=== PATIENT | female | born 1995 | race Caucasian/White ===

== ENCOUNTER 2017-02-09 11:09 | Emergency (ER) | payer BC, OTHER ==
[~2017-02-09] VITALS: Ht 170.2 cm; Wt 67.0 kg
[2017-02-09 11:14] VITALS: BP 122/77; PULSE 123; TEMP 37.2; O2SAT 98; Ht 170.2 cm; Wt 67.0 kg
--- NOTE | 2017-02-09 11:55 | EMERGENCY ROOM VISIT NOTE ---
ED Visit Note First contact with patient: 11:42 CHIEF COMPLAINT: Low back pain HISTORY OF PRESENT ILLNESS: This 21-year-old female patient presents to the emergency department ambulatory complaining of pain in the low back which began when she was a young child but has worsened over the last several weeks. The pain was gradual in onset, is now constant and worse with movement. The patient notes the pain as sharp and a 7/10. The patient has taken nothing for relief of the pain. The patient denies any bowel or bladder difficulties. There has been no leg numbness or weakness, and no change in sensation. No nausea or vomiting or abdominal pain. No chest pain or shortness of breath. The patient states that she was texting and walking and fell down the stairs a week ago. 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 She denies any fevers. She denies any abdominal pain, nausea or vomiting. She reports occasional and intermittent numbness in the legs. She denies any saddle anesthesia, loss of bowel or bladder control. REVIEW OF SYSTEMS: No dysuria or increased urinary frequency. A 6 system review of systems was completed and pertinent positives and negatives are in the HPI. ALLERGIES: No known drug allergies MEDICATIONS: None PMH: None SOCIAL HISTORY: The patient lives locally with family. She is employed. PHYSICAL EXAM: VITALS: Vitals are noted on the nurse's note and reviewed by myself. No abnormalities noted. GENERAL: This is a 21-year-old female, in no acute distress, nondiaphoretic, well-developed well-nourished. SKIN: The skin was without rashes, erythema, edema, or bruising. Capillary refill less than 2 seconds. NECK: Supple without nuchal rigidity. No cervical spine tenderness. No paraspinous muscle tenderness. HEART: Regular rate and rhythm without murmurs gallops or rubs. LUNGS: Clear to auscultation bilaterally without wheezes, rales or rhonchi. ABDOMEN: Positive bowel sounds x 4. Normal tympanic percussion. Soft, nontender, without masses or organomegaly. Lee sign negative. MUSCULOSKELETAL: No muscle atrophy, erythema, or edema noted of the back. There is mild tenderness over the lumbar spinous processes. There is no tenderness over the paraspinous muscles. There is no tenderness over the thoracic spine or paraspinous muscles. There are no muscle spasms present. The patient is slow to move around with maximum tenderness with extension. Negative straight leg raise test. NEURO: Patient was alert and oriented to person place and time. Normal sensation to light and sharp touch. Deep tendon reflexes 2+ in the lower extremities. Dorsalis pedis pulse 2+ bilaterally. Strength is 5/5 in the lower extremities bilaterally. EMERGENCY DEPARTMENT COURSE: The patient was seen and examined. Previous visits were reviewed. The patient reports a long-standing history of back pain. The patient states that last week she fell down the stairs. She complains of localized back pain since then. She does not have any neurologic deficit on exam or by history. She does not have any radicular symptoms. An x- ray was obtained as below. There is no evidence for bony abnormality. The patient will be given naproxen and Flexeril. She'll be given a note for work. She should follow-up with a family doctor for further evaluation and management. She should return sooner with any worsening symptoms. DIAGNOSIS: Lumbar strain DISCHARGE INSTRUCTIONS AND TREATMENT: Rest off your feet for 1 to 2 days, ice for 24 hrs then heat to the low back. See your own doctor or an orthopedist in 7 days if you are not improving. Naproxen as prescribed, as needed for moderate pain. Flexeril 3 times a day as needed for muscle spasm. No driving or alcohol use with Flexeril. Return if any problems with bowel or bladder function or if loss of sensation/movement of lower extremities. L-SPINE MIN 4 VIEWS ROUTINE CLINICAL HISTORY: 21 years-old Female presenting with fall, low back pain, low back pain at the L2-3 level, pain increase. TECHNIQUE: Frontal, bilateral oblique, lateral, and coned in lateral views of the lumbar spine were obtained. COMPARISON: None. FINDINGS: No significant scoliosis. Normal lumbar lordosis. Vertebral bodies maintain normal height and alignment. Intervertebral disc spaces preserved. No osseous neural foraminal narrowing. No radiographic evidence of fracture or subluxation. IMPRESSION: Normal radiographic appearance of the lumbar spine. If there is continuing clinical concern for acute injury, cross-sectional imaging could be considered. DIFFERENTIAL DIAGNOSIS: Lumbar strain, degenerative disc disease, spondylolisthesis, herniated disc, spinal stenosis, osteoporosis, fracture, cauda equina syndrome, neoplasm, infection, inflammatory arthritis, among others. Current/Historical Medications Scheduled Cyclobenzaprine Hcl (Flexeril), 10 MG PO TID Naproxen (Naprosyn), 500 MG PO BID Allergies Coded Allergies: No Known Allergies (Unverified , 02/09/17) Vital Signs Date Time Temp Pulse Resp B/P (MAP) Pulse Ox O2 Delivery O2 Flow Rate FiO2 02/09/17 11:14 37.2 123 18 122/77 98 Room Air Departure Information Impression Primary Impression: Lumbar back pain Dispostion Home / Self-Care Condition GOOD Prescriptions Naproxen (Naprosyn) 500 Mg Tab 500 MG PO BID for 7 Days, #14 TAB Prov: Lynsey Post PA-C 02/09/17 Cyclobenzaprine Hcl (FLEXERIL) 10 Mg Tab 10 MG PO TID for 7 Days, #21 TAB Prov: Lynsey Post PA-C 02/09/17 Referrals No Doctor, Assigned (PCP) Forms HOME CARE DOCUMENTATION FORM, IMPORTANT VISIT INFORMATION, Work Instructions Lifting Limitations: no more than 10 pounds Additional Instructions: no lifting more than 10 pounds for 1 week Patient Instructions Back Pain Relieve, [facility] Additional Instructions Rest off your feet for 1 to 2 days, ice for 24 hrs then heat to the low back. See your own doctor or an orthopedist in 7 days if you are not improving. Naproxen as prescribed, as needed for moderate pain. Flexeril 3 times a day as needed for muscle spasm. No driving or alcohol use with Flexeril. Return if any problems with bowel or bladder function or if loss of sensation/movement of lower extremities. Problem Qualifiers Primary Impression: Lumbar back pain Chronicity: acute Sciatica presence: without sciatica
--- NOTE | 2017-02-09 12:19 | DIAGNOSTIC IMAGING REPORT ---
L-SPINE MIN 4 VIEWS ROUTINE CLINICAL HISTORY: 21 years-old Female presenting with fall, low back pain, low back pain at the L2-3 level, pain increase. TECHNIQUE: Frontal, bilateral oblique, lateral, and coned in lateral views of the lumbar spine were obtained. COMPARISON: None. FINDINGS: No significant scoliosis. Normal lumbar lordosis. Vertebral bodies maintain normal height and alignment. Intervertebral disc spaces preserved. No osseous neural foraminal narrowing. No radiographic evidence of fracture or subluxation. IMPRESSION: Normal radiographic appearance of the lumbar spine. If there is continuing clinical concern for acute injury, cross-sectional imaging could be considered. Electronically signed by: Baltazar Irving M.D. 02/09/2017 12:18 PM Dictated Date/Time: 02/09/2017 12:15 PM
[2017-02-09] MEDS ORDERED: CYCL10TA6 PO (12:33)
[2017-02-09] MEDS ORDERED: NAPR-1169 PO (12:33)
== END 2017-02-09 12:45 | disposition home or self-care (01) ==
LOC: C.EDB 11:12 → C.EDD 12:45
DX: M54.5 Low back pain (principal)